=== PATIENT | female | born 1995 ===

== ENCOUNTER 2019-10-20 05:30 | Inpatient (IN) | payer OTHER ==
[~2019-10-20] VITALS: Ht 162.6 cm; Wt 65.3 kg
== END 2019-10-21 09:27 | disposition home or self-care (01) | DRG 743 ==
LOC: CIR.AMB 05:30 → EDSTATUS 07:15 → O/R 07:15 → OB/GYN 09:37 → CIR.AMB 09:45 → OB/GYN 10:42
PROVIDERS: ADMIT Obstetrics & Gynecology
PROC: 0UN70ZZ Release Bilateral Fallopian Tubes, Open Approach (ICD-10-PCS; 2019-10-20)
PROC: 0UB70ZZ Excision of Bilateral Fallopian Tubes, Open Approach (ICD-10-PCS; principal; 2019-10-20 09:45)
DX: Z30.2 Encounter for sterilization (principal); N73.6 Female pelvic peritoneal adhesions (postinfective)